=== PATIENT | male | born 2000 | race Two or more races ===

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

== ENCOUNTER 2023-09-11 11:32 | Emergency (ER) | payer MEDICAID ==
[2023-09-11 12:06] VITALS: BP 141/64; PULSE 104
[2023-09-11 12:52] LABS: INFLUENZA A NAA NEGATIVE (NEGATIVE); INFLUENZA B NAA NEGATIVE (NEGATIVE); RESPIRATORY SYNCYTIAL VIR NAA NEGATIVE (NEGATIVE)
[2023-09-11 12:57] LABS: CORONAVIRUS COVID-19 NAA POSITIVE (NEGATIVE)
== END 2023-09-11 13:20 | disposition home or self-care (01) ==
LOC: JP.ED 11:32
DX: U07.1 COVID-19 (principal); Z88.0 Allergy status to penicillin
CPT/HCPCS: 0241U; 87651; 99284

== ENCOUNTER 2025-07-21 00:59 | Emergency (ER) | payer MEDICAID, OTHER ==
[2025-07-21 01:17] VITALS: BP 110/75; PULSE 74
[2025-07-21] MEDS: Diphtheria,Pertussis(Acell),Tetanus Vaccine 0.5 ML Syringe IM ONE (01:50)
[2025-07-21] MEDS: Lidocaine 1% with EPINEPHrine 1:100,000 20 ML MDV INJECT ONE (01:53)
[2025-07-21] MEDS: Bacitracin Oint 1 GM U/D Packet TOP ONE (01:53)
== END 2025-07-21 02:23 | disposition home or self-care (01) ==
LOC: JP.ED 00:59
DX: S61.215A Laceration without foreign body of left ring finger without damage to nail, initial encounter (principal); S61.213A Laceration without foreign body of left middle finger without damage to nail, initial encounter; Z23 Encounter for immunization; Z88.1 Allergy status to other antibiotic agents; W22.8XXA Striking against or struck by other objects, initial encounter
CPT/HCPCS: 12001; 73130; 90471; 90715; 99283; J2004